=== PATIENT | female | born 1970 | race Asian ===

== ENCOUNTER 2019-03-14 14:25 | Emergency (ER) | payer SELFPAY ==
[~2019-03-14] VITALS: Ht 157.5 cm; Wt 77.6 kg
--- NOTE | 2019-03-14 14:45 | NUR ---
ED Nurse Note: pt c/o left knee pain awaiting ermd eval A&Ox4 NAD .
--- NOTE | 2019-03-14 15:28 | Emergency Room Report ---
History of Present Illness General Chief Complaint: Lower Extremity Injury Source: Patient Present Illness HPI 48-year-old female presents to the emergency department complaining of 10 out of 10 severity localized pain, swelling, tenderness and feeling of instability to a localized area on the left knee x2 weeks status post injury at work. Patient described pivot type injury when she got up from the desk to suddenly patient states she felt a pop she states that she has been evaluated and was placed on light duty however she states despite anti-inflammatories and light duty her symptoms persist and she states that upon attempts to ambulate she must use crutches and she feels as though her knee is going to give out under her. Patient denies previous injury to this extremity she denies paresthesias or skin color changes. Patient denies temperature changes to the extremity. Denies new trauma or fall. No other relieving factors at this time. Allergies: Coded Allergies: No Known Allergies (Unverified , 03/14/19) Patient History Past Medical History: see triage record Past Surgical History: none Pertinent Family History: none Last Menstrual Period: menopause Now: No Reviewed Nursing Documentation: PMH: Agreed; PSxH: Agreed Nursing Documentation-PMH Past Medical History: No Stated History Review of Systems All Other Systems: negative except mentioned in HPI Physical Exam Vital Signs Date Time Temp Pulse Resp B/P (MAP) Pulse Ox O2 Delivery O2 Flow Rate FiO2 03/14/19 14:33 98.2 90 18 149/75 (99) 98 Room Air Sp02 EP Interpretation: reviewed, normal General Appearance: alert, GCS 15, non-toxic, mild distress - pt. is tearful Head: normocephalic, atraumatic Eyes: bilateral eye normal inspection, bilateral eye PERRL ENT: hearing grossly normal, normal voice Neck: full range of motion Respiratory: lungs clear, normal breath sounds, speaking full sentences Cardiovascular #1: regular rate, rhythm Cardiovascular #2: 2+ dorsalis pedis (L) - post tibialis Musculoskeletal: normal range of motion - with pain., swelling - left medial knee, other - negative anterior and posterior drawer signs. moderate pain with valgus stress. , tender - left medial knee Neurologic: alert, oriented x3, responsive, motor strength/tone normal, sensory intact, speech normal, grossly normal Psychiatric: judgement/insight normal Skin: normal color, no rash, warm/dry, well hydrated Medical Decision Making PA Attestation Dr. Ho is my supervising Physician whom patient management has been discussed with. Diagnostic Impression: Primary Impression: Soft tissue injury of left knee Qualified Codes: S89.92XA - Unspecified injury of left lower leg, initial encounter ER Course 48-year-old female presents to the emergency department complaining of 10 out of 10 severity localized pain, swelling, tenderness and feeling of instability to a localized area on the left knee x2 weeks status post injury at work. Patient described pivot type injury when she got up from the desk to suddenly patient states she felt a pop she states that she has been evaluated and was placed on light duty however she states despite anti-inflammatories and light duty her symptoms persist and she states that upon attempts to ambulate she must use crutches and she feels as though her knee is going to give out under her. Patient denies previous injury to this extremity she denies paresthesias or skin color changes. Patient denies temperature changes to the extremity. Denies new trauma or fall. No other relieving factors at this time. Ddx considered but are not limited to Fracture, dislocation, contusion, Sprain/ Strain/Spasm, Meniscal injury, Ligamental injury just to name a few Vital signs: are WNL, pt. is afebrile H&PE are most consistent with Soft tissue injury of the knee requiring further evaluation by channel marketing specialist. Pt. had 2 previous normal knee x-rays. No exam findings to warrant emergent imaging. pt. is stable for outpatient management. ORDERS: - none at this time. ED INTERVENTIONS: --Knee Immobilizer splint applied to the Left Knee by sales technician. Pt. remains neurovascularly intact. --Patient is provided with crutches and instructed on their use DISCHARGE: At this time pt. is stable for d/c to home. Will provide printed patient care instructions, and any necessary prescriptions. Care plan and follow up instructions have been discussed with the patient prior to discharge. Last Vital Signs Date Time Temp Pulse Resp B/P (MAP) Pulse Ox O2 Delivery O2 Flow Rate FiO2 03/14/19 14:33 98.2 90 18 149/75 (99) 98 Room Air Status: improved Disposition: HOME, SELF-CARE Condition: Stable Scripts Tramadol Hcl* (ULTRAM*) 50 Mg Tablet 50 MG ORAL Q6H PRN for For Pain, #12 TAB 0 Refills Prov: Laney Meneses 03/14/19 Diclofenac Sodium (VOLTAREN) 100 Gm Gel..gram. 1 APPLIC TP THREE TIMES A DAY, #100 GM Prov: Laney Meneses 03/14/19 Departure Forms: Return to Work Return to Work Date: Mar 18, 2019 Work Restrictions: Desk Work Only Return to Full Activity: Mar 28, 2019 Patient Instructions: Meniscus Injury Additional Instructions: Take medications as directed. Follow up with an RENTAL SALESPERSON in 3-5 days, even if your symptoms have resolved. If symptoms persist MRI is recommended Return sooner to ED if new symptoms occur, or current symptoms become worse. Do not drink alcohol, drive, or operate heavy machinery while taking Tramadol as this may cause drowsiness. - Please note that this Emergency Department Report was dictated using [employer]psychiatric ar[employer] technology software, occasionally this can lead to erroneous entry secondary to interpretation by the dictation equipment. Laney Meneses Mar 14, 2019 15:28
[2019-03-14] MEDS ORDERED: TRAMADOL HCL50 MG ORAL (15:29)
[2019-03-14] MEDS ORDERED: VOLTAREN100 G1 TP (15:29)
[2019-03-14 16:30] VITALS: BP 149/75
--- NOTE | 2019-03-14 16:31 | NUR ---
ED Nurse Note: knee immobilizer applied crutches and crutch gait provided pt given aci and script verbalized understanding ambulated out with strong steady crutch gait. and workers comp papers given pt pt.
== END 2019-03-14 16:34 | disposition home or self-care (01) ==
LOC: EMR 15:35
DX: S89.92XA Unspecified injury of left lower leg, initial encounter (principal); X58.XXXA Exposure to other specified factors, initial encounter; Y92.9 Unspecified place or not applicable
CPT/HCPCS: 29505; 99283